=== PATIENT | male | born 1995 | race African-American/Black ===

== ENCOUNTER 2019-07-26 08:18 | Emergency (ER) | payer OTHER ==
[2019-07-26 08:29] VITALS: BP 125/80; PULSE 67; TEMP 97.6; BMI 29.8
--- NOTE | 2019-07-26 08:47 | PDOC ---
History of Present Illness - General Chief Complaint: Injury Stated Complaint: R/ANKLE DISCOMFORT Time Seen by Provider: 07/26/19 08:32 History Source: Patient Exam Limitations: No Limitations - History of Present Illness Initial Comments: 07/26/19 08:44 23-year-old male denies past medical history complaining of right ankle pain status post injury at work 2 days ago. Patient works for a moving company, he was moving a dinning table, the leg broke off and table landed on the medial aspect of R ankle. denies any other injury, he has applied ice to area. did not take pain meds. presents to ED because his workplace requested he come in for evaluation. ROS: R ankle pain PE: well appearing resp: CTAB cardio: rrr, no m/g/r ext: R ankle - no bony ttp, no swelling, no ecchymosis, + pedal pulses, no abrasions or lacerations noted ambulatory Is this a multiple visit Asthma Patient?: No Past History - Past Medical History Allergies/Adverse Reactions: Allergies Allergy/AdvReac Type Severity Reaction Status Date / Time No Known Allergies Allergy Verified 07/26/19 08:22 COPD: No - Immunization History Immunization Up to Date: No - Psycho Social/Smoking Cessation Hx Smoking History: Current every day smoker Have you smoked in the past 12 months: Yes Number of Cigarettes Smoked Daily: 0 Information on smoking cessation initiated: No Hx Alcohol Use: No Drug/Substance Use Hx: Yes *Physical Exam - Vital Signs Last Vital Signs Temp Pulse Resp BP Pulse Ox 97.6 F 67 18 125/80 100 07/26/19 08:22 07/26/19 08:22 07/26/19 08:22 07/26/19 08:22 07/26/19 08:22 ED Treatment Course - RADIOLOGY Radiology Studies Ordered: Category Date Time Status ANKLE-RIGHT [RAD] Stat Radiology 07/26/19 08:41 Ordered Medical Decision Making - Medical Decision Making 07/26/19 08:54 23 yo male sustained R ankle injury 2 days ago R ankle xray - no acute fx noted on my read patient declines analgesia ambulatory note for work provided Discharge - Discharge Information Problems reviewed: Yes Clinical Impression/Diagnosis: Ankle injury Qualifiers: Encounter type: initial encounter Laterality: right Qualified Code(s): S99.911A - Unspecified injury of right ankle, initial encounter Condition: Stable Disposition: HOME - Admission No - Follow up/Referral - Patient Discharge Instructions Additional Instructions: take ibuprofen 600 mg every 6 hours as needed for pain rest, elevate note for work provided return to ED if worsening pain or any concerns - Post Discharge Activity Work/Back to School Note: Back to Work
[2019-07-26] MEDS ORDERED: IBUPROFEN 600 MG TABLET (FP) PO ONE ×2 (09:02)
== END 2019-07-26 09:05 | disposition home or self-care (01) ==
LOC: JERFT 08:18
DX: S99.811A Other specified injuries of right ankle, initial encounter (principal); W22.8XXA Striking against or struck by other objects, initial encounter; Y93.E6 Activity, residential relocation; Y92.89 Other specified places as the place of occurrence of the external cause; Y99.0 Civilian activity done for income or pay; F17.210 Nicotine dependence, cigarettes, uncomplicated
CPT/HCPCS: 73610-TC-RT-FY; 99283-25